=== PATIENT | female | born 1955 | race Caucasian/White ===

== ENCOUNTER 2024-07-21 15:45 | Inpatient (IN) | payer SELFPAY ==
[2024-07-21] VITALS (32 sets, daily range): BP systolic 89–152; BP diastolic 62–126; BMI 27.3
[2024-07-21 11:07] LABS: Hematocrit 41.1 % (37.0-47.0); Hemoglobin 13.8 g/dL (12.0-16.0); Mean Corp Hgb Conc. 33.6 g/dL (33.0-37.0); Mean Corpuscular Hgb 29.4 pg (27.0-31.0); Mean Corpuscular Volume 87.6 fL (81.0-99.0); Mean Platelet Volume 9.6 fL (7.4-10.4); Platelet Count 192 10^3/uL (130-400); Red Blood Cell Count 4.69 10^6/uL (4.20-5.40); Red Cell Dist. Width 14.2 % (11.5-14.5); White Blood Cell Count 5.8 10^3/uL (4.8-10.8)
[2024-07-21 11:22] LABS: ALT (SGPT) 48 U/L (0-35); AST (SGOT) 41 U/L (14-36); Albumin 3.7 g/dl (3.5-5.0); Alkaline Phosphatase 86 U/L (38-126); Blood Urea Nitrogen 26 mg/dl (7-17); Calcium 9.2 mg/dl (8.4-10.2); Carbon Dioxide 27 mmol/L (22-30); Chloride 99 mmol/L (98-107); Glucose 102 mg/dl (70-99); Sodium 137 mmol/L (135-145); Total Bilirubin 1.6 mg/dl (0.2-1.3); Total Protein 6.4 g/dl (6.3-8.2); eGFR > 60.00
[2024-07-21] MEDS: VANCOCIN 200 IV (12:09)
--- NOTE | 2024-07-21 15:18 | ITS.CL.ICD ---
[employer] - ICD
Implantable Cardioverter Defibrillator
Procedure Report:
Date of Procedure: July 21, 2024
Patient : 1955
Procedures: BiV ICD implantation
Indication: 1) Class III CHF, LVEF 15%, 2) left bundle Branch Block, QRS 155 ms
�
Implants:
Pulse Generator: spigit; Model# [id number]; Serial#�[id number]
Atrial Lead: Medtronic: Model# 4574; Serial# [id number]
Right Ventricular Lead: Medtronic; Model# 6935; Serial# [id number]
Left Ventricular Lead: Medtronic; Model# 4798; Serial# [id number]
�
�
Technique: The patient was prepped and draped in the usual fashion. Local anesthetic was applied to the left prepectoral subcutaneous tissue. A 4 inch incision was made. The left axillary vein was accessed��without difficulty. A subcutaneous pocket
was CREATED. Hemostasis was excellent. The right ventricular lead was placed at the right ventricular apex. The atrial lead was placed in the right atrial appendage. The coronary sinus was accessed with the aid of the Attain system. Coronary sinus
ostium was extremely tortuous with a corkscrew os requiring extensive manipulation to bring the outer catheter into the coronary sinus ostium and the left ventricular lead was placed in the high lateral branch with an active-fixation lead with
excellent parameters. 10 volt pacing did not capture the diaphragm. The leads were secured to the pectoralis muscle and fascia. The leads were appropriately attached to the device. The pocket was irrigated with antibiotic solution. The device and
leads were placed in the pocket and the device was secured to pectoralis muscle and facia. The incision was closed with absorbable sutures. The estimated blood loss was minimal. There were no complications. Device based testing was performed as
described below. IV contrast total: 30 cc.
18.3 minutes of pulse fluoroscopy and 76.3 mGy
System Analysis:
RA lead: P: 4.2 mV; Threshold: 1.0 V @ 0.5 ms; Impedance: 532 ohms.
RV lead: R: 5.9 mV; Threshold: 0.5 V @ 0.5 ms; Impedance: 494 ohms.
LV lead: R: 20 mV; Threshold: 1.0 V @ 0.5 ms; Impedance: 684 ohms.
�
Final Programming: Tachy: VT/VF:188; Isaac: DDDR 60-120.
�
Conclusion: Uncomplicated Biventricular ICD implant
�
Recommendation: Routine post BiV ICD care.
�
cc: Dr. Erlin Klein
�
--- NOTE | 2024-07-21 16:02 | PTCARENOTE ---
Received patient post BiVICD placement left upper chest. Aquacel dressing is dry and intact left chest, immobilizer in place. Patient sleepy but easily arousable, oriented to room and plan of care. Monitoring VS, call stover at the bedside.
--- NOTE | 2024-07-21 16:40 | CM ---
CM following for DC planning needs.
Met w/ patient, spouse at bedside to complete initial assessment.
Pt. resides in a private, 2 story home w/ spouse and mult. generations of their family (her father, her children).
Pt. is indep. at baseline w/ ADLs, mobility without the use of any assisted device.
Pt. does NOT have Rx plan; pays privately for medications and uses [facility] in [place].
DC plan is anticipated for home, no needs.
[2024-07-21] MEDS: LASIX 40 MG PO (18:35)
[2024-07-21] MEDS: FLUSH (NSS) 1 FLUSH IV (18:36)
[2024-07-21] MEDS: CORDARONE 103 MG IV (18:57)
--- NOTE | 2024-07-21 18:59 | W.PN.UPDATE ---
Addendum entered and electronically signed by Dagoberto Samuels MD 07/21/24 19:33:
patient converted to sinus after amio bolus. LV only pacing and office ECG demonstrate same LBRI morphology as in wide complex tachycardia further supporting diagnosis of SVT. Will start PO toprol at bid and amiodarone 200mg bid and overlap PO/IV
amiodarone overnight. will plan short/immediate term Po arrhythmia suppression given how rapid her heart rates are. Given her non ischemic CM could there be a tachycardia component to it as she was relatively asymptomatic with the arrhythmia? PO
toprol ordered 12.5mg bid and amiodarone 200mg bid. I suspect we will need to consider these meds at discharge and if she has further arrhythmia will likely plan to load drug over the weekend.
will follow closely.
discussed w nursing by phone
Original Note:
Update Note
Progress Note Update
called by nursing- I am [facility] surgeon but out of hospital.
patient hemodynamically stable/alert in a wide complex tachycardia
i reviewed the ECG in real time via tiger text.
LBB tachycardia with right inferior axis at 174-186bpm. (VF zone is 188). In EP lab she was having frequent atrial couplets and triplets.
As she is hemodynamically stable per nursing and per BP taken in arrhythmia will start stat amiodarone bolus then 1mg/min drip and PO toprol if she can tolerate. if she does not convert will plan to assess at bedside and interrogate device, The ECG
suggests a 1:1 AV relationship (probable short RP) and I favor SVT with aberrancy but cannot exclude VT. There is no clear evidence of any VA dissociation on the current ECG.
Discussed with nursing and will communicate further regarding course.
[2024-07-21] MEDS: CORDARONE 518 MG IV (19:08)
--- NOTE | 2024-07-21 20:07 | PTCARENOTE ---
While patient was eating dinner telemetry alarming VT with rates in the 170'180's. Patient asymptomatic, stat EKG done, notified Dr. Samuels, tt EKG sent to him and patient given amio bolus as ordered. Rate did respond to bolus, PLANNING AIDE in the 80's now.
Infusing amiodarone at 1mg/min, new IV site placed by the IV team.
[2024-07-21] MEDS: TOPROL XL 12.5 MG PO (20:15)
[2024-07-21] MEDS: PACERONE 200 MG PO (21:08)
[2024-07-22] VITALS: BP 101/69
--- NOTE | 2024-07-22 00:19 | PTCARENOTE ---
Pt received start of shift, HR currently V-paced w/ occasional PVCs. No further arrhythmia noted since amio bolus earlier in shift. Amiodarone infusing 1mg/min. amio PO and tropol PO administered as ordered - see DEC. L chest site dressing CDI. L
arm immobilizer on. Educated pt and significant other on purpose of amiodarone and toprol. Reviewed activity restrictions w/ pt. Pt updated on plan of care, pt states understanding. Call stover within reach.
[2024-07-22 04:19] VITALS: BP 86/69
[2024-07-22 04:21] VITALS: BP 91/68; BMI 27.7
[2024-07-22 04:51] VITALS: BMI 27.7
[2024-07-22 05:30] LABS: Hemoglobin 14.8 g/dL (12.0-16.0); Mean Corp Hgb Conc. 33.6 g/dL (33.0-37.0); Mean Corpuscular Hgb 30.5 pg (27.0-31.0); Mean Corpuscular Volume 90.5 fL (81.0-99.0); Mean Platelet Volume 10.2 fL (7.4-10.4); Platelet Count 196 10^3/uL (130-400); Red Blood Cell Count 4.86 10^6/uL (4.20-5.40); Red Cell Dist. Width 14.2 % (11.5-14.5); White Blood Cell Count 9.2 10^3/uL (4.8-10.8)
[2024-07-22 06:01] LABS: Blood Urea Nitrogen 28 mg/dl (7-17); Calcium 9.2 mg/dl (8.4-10.2); Carbon Dioxide 21 mmol/L (22-30); Chloride 99 mmol/L (98-107); Estimated Creatinine Clearance 50 ml/min; Glucose 208 mg/dl (70-99); Magnesium 1.9 mg/dl (1.6-2.3); Sodium 132 mmol/L (135-145); eGFR > 60.00
[2024-07-22 06:42] VITALS: BP 97/72
[2024-07-22] MEDS: TOPROL XL 12.5 MG PO (07:35)
[2024-07-22] MEDS: PACERONE 200 MG PO (07:35)
--- NOTE | 2024-07-22 07:49 | W.PN.CARDCBS ---
Addendum entered and electronically signed by Alicia Royal PA-C 07/22/24 11:40:
d/c summary addendum #[id number]
Addendum entered and electronically signed by Dagoberto Samuels MD 07/22/24 08:12:
Patient seen and examined
Agree with PA-C note and assessment
Agree with PA-C plan
Events of overnight noted. She had wide-complex tachycardia post implant in a sustained fashion although in procedure lab we noted atrial couplets and triplets leading to short runs of wide-complex tachycardia with a one-to-one AV relationship
suggesting AV node reentry tachycardia. Discussion with her today in retrospect she was having 1 to 2-hour episodes of this 3-4 times a week for approximately 1 to 2 years. I wonder whether her cardiomyopathy has a tachycardia component. She
typically took her 'oils'which helped ameliorate the tachycardia. After IV amiodarone as well as initiation of p.o. metoprolol and amiodarone no further tachyarrhythmias were noted. She has a sinus rate in the 80s with appropriate atrial sensing
as well as appropriate ventricular sensing and pacing. Her chest x-ray is noted and as she is afebrile without cough or a white count I am suspicious that she has bilateral pleural effusions that are small. Certainly clinically if she were to note
fevers or productive sputum the alternative pneumonia could be considered as an outpatient.
Examination
As per PA-C note
Her site is clean dry and intact
Chest x-ray demonstrates stable lead positions without pneumothorax
Alert and orient x 3
Nonfocal neurologically
Cor regular
Remainder as per PA-C note
Cardiology: Dr. Klein
EP: Dr. Samuels
Impression:
s/p Medtronic MACHINE SHORTHAND TEACHER-D 07/21/24
NICM EF 15-20% by echo 02/28/24
cLBBB
Nonobstructive CAD by cath 10/16/22
HTN
Severe with mild to mod AI
Hyperlipidemia
Echo 02/28/2024: EF 15 to 20% with severe global hypokinesis to near akinesis in the inferior posterior wall that was moderately to severely hypokinetic, no LV thrombus, grade 3 diastolic dysfunction, mild MR, severe without reported gradients and
mild to moderate aortic insufficiency
Plan:
-Patient came to for an elective MACHINE SHORTHAND TEACHER-D on 07/21/24. Patient with h/o NICM and previous testing as noted above.
-Patient is s/p Medtronic MACHINE SHORTHAND TEACHER-D and activity and limb restrictions reviewed.
-CM regimen includes outpatient dose of ramipril 5 mg daily
-Patient started on Toprol XL 12.5 mg daily on 07/22/24
-Outpatient dose of Lasix 60 mg PO AM and 40 mg PO PM has been continued
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 Amiodarone gtt started along with amiodarone 200 mg BID. Will stop amiodarone gtt now. Cont amiodarone 200 mg BID for 1 month and then reduce to 200 mg daily thereafter.
-Will follow on tele 07/22/24 and if arrhythmia improved and patient remains asymptomatic then will d/c to home on Toprol XL 12.5 mg daily and the amiodarone as above.
Original Note:
Today's Communication / Plan
-
Cont amiodarone PO load
Possible d/c to home later today
Impression / Plan
-
PCP: Dr. Fabiana Pond
Cardiology: Dr. Klein
EP: Dr. Samuels
Impression:
s/p Medtronic MACHINE SHORTHAND TEACHER-D 07/21/24
NICM EF 15-20% by echo 02/28/24
cLBBB
Nonobstructive CAD by cath 10/16/22
HTN
Severe with mild to mod AI
Hyperlipidemia
Echo 02/28/2024: EF 15 to 20% with severe global hypokinesis to near akinesis in the inferior posterior wall that was moderately to severely hypokinetic, no LV thrombus, grade 3 diastolic dysfunction, mild MR, severe without reported gradients and
mild to moderate aortic insufficiency
Plan:
-Patient came to for an elective MACHINE SHORTHAND TEACHER-D on 07/21/24. Patient with h/o NICM and previous testing as noted above.
-Patient is s/p Medtronic MACHINE SHORTHAND TEACHER-D and activity and limb restrictions reviewed.
-CM regimen includes outpatient dose of ramipril 5 mg daily
-Patient started on Toprol XL 12.5 mg daily on 07/22/24
-Outpatient dose of Lasix 60 mg PO AM and 40 mg PO PM has been continued
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 Amiodarone gtt started along with amiodarone 200 mg BID. Will stop amiodarone gtt now. Cont amiodarone 200 mg BID for 1 month and then reduce to 200 mg daily thereafter.
-Will follow on tele 07/22/24 and if arrhythmia improved and patient remains asymptomatic then will d/c to home.
Progress Note - House Superintendent
Subjective
Date of Service: July 22, 2024
No awareness of palpitations
Objective
Labs:
07/22/24 04:42
07/22/24 04:42
Labs
Hgb 14.8 g/dL (12.0-16.0) 07/22/24 04:42
Hct 44.0 % (37.0-47.0) 07/22/24 04:42
Plt Count 196 10^3/uL (130-400) 07/22/24 04:42
Sodium 132 mmol/L (135-145) L 07/22/24 04:42
Potassium 5.0 mmol/L (3.5-5.1) 07/22/24 04:42
BUN 28 mg/dl (7-17) H 07/22/24 04:42
Creatinine 0.9 mg/dL (0.6-1.0) 07/22/24 04:42
Glucose 208 mg/dl (70-99) H 07/22/24 04:42
Vital Signs and I&O:
Vital Signs
Temp Pulse Resp BP Pulse Ox
98.8 F 76 16 97/72 95
07/22/24 06:46 07/22/24 07:35 07/22/24 06:46 07/22/24 07:35 07/22/24 06:46
Vital Signs
Temp Pulse Resp BP Pulse Ox
98.8 F 76 16 97/72 95
07/22/24 06:46 07/22/24 07:35 07/22/24 06:46 07/22/24 07:35 07/22/24 06:46
Intake & Output
07/20/24 07/21/24 07/22/24 07/23/24
06:59 06:59 06:59 06:59
Intake Total 480 / 480
Balance 480 / 480
Physical Exam
Physical Exam
GEN: AAOx3
HEENT: MMM
LUNGS: No audible wheeze
CV: SR
ABD: ND
EXT: No edema
NEURO: Gross non-focal
SKIN: No rash
[2024-07-22 08:12] VITALS: BP 112/95
[2024-07-22] MEDS: LASIX 60 MG PO (08:15)
--- NOTE | 2024-07-22 11:40 | W.DS.TRANS ---
DC Summary - Knowledge Management Consultant
-
Discharge Instructions:
Sleep Apnea Risk Low
Discharge Diagnosis/Procedures Heart failure, post BiV ICD
Diet Low Cholesterol,2 Gram Sodium
Activity Other activity
Additional Activity See attached sheet
Driving Restrictions No driving for 1 week
Bathing Restrictions OK to Shower
Specialty Instructions Weigh Daily
Instructions:
Stand-Alone Forms: DC Inst - Implanted Device
Changes to Home Medications: Yes
Discharge Medications:
DC Medications w/original date entered in [employer]
furosemide 40 mg tablet 40 mg PO QPM 07/21/24
furosemide 40 mg tablet 60 mg PO DAILY 07/21/24
metoprolol succinate 25 mg tablet,extended release 24 hr 12.5 mg (1/2 x 25 mg) PO DAILY #9 tabs 07/21/24
ramipril 5 mg capsule 5 mg PO QPM PRN SBP>100 07/21/24
amiodarone 200 mg tablet 200 mg PO BID Arrhythmia #60 tabs 07/22/24
amiodarone 200 mg tablet 200 mg PO DAILY Arrhythmia #30 tabs 07/22/24
Home Medication Changes
New to Toprol XL and amiodarone
Pending Results: No
[2024-07-22 11:42] VITALS: BP 93/66
--- NOTE | 2024-07-22 13:58 | PTCARENOTE ---
Received patient at shift change. L chest wall dressing CDI with no evidence of hematoma. L arm immobilizer in place. V paced on the monitor, HR in the 70s. IV amio d/daniel. Discharge instructions read to pt, pt verbalizes understanding. IV and tele
removed. Pt left via wheelchair and staff escort with discharge instructions, belongings from room, and educational materials.
== END 2024-07-22 14:02 | disposition home or self-care (01) | DRG 277 ==
LOC: IVU 15:45
PROVIDERS: Nurse Practitioner Adult Health; ADMITTING PHYSICIAN Internal Medicine Cardiovascular Disease
PROC: 02H43KZ Insertion of Defibrillator Lead into Coronary Vein, Percutaneous Approach (ICD-10-PCS; 2024-07-21)
PROC: 0JH609Z Insertion of Cardiac Resynchronization Defibrillator Pulse Generator into Chest Subcutaneous Tissue and Fascia, Open Approach (ICD-10-PCS; 2024-07-21)
PROC: 02HK3KZ Insertion of Defibrillator Lead into Right Ventricle, Percutaneous Approach (ICD-10-PCS; 2024-07-21)
PROC: 02H63KZ Insertion of Defibrillator Lead into Right Atrium, Percutaneous Approach (ICD-10-PCS; 2024-07-21)
DX: I11.0 Hypertensive heart disease with heart failure (principal); I47.19 Other supraventricular tachycardia; I50.22 Chronic systolic (congestive) heart failure; I08.0 Rheumatic disorders of both mitral and aortic valves; I42.8 Other cardiomyopathies; I95.9 Hypotension, unspecified; I44.7 Left bundle-branch block, unspecified; I25.10 Atherosclerotic heart disease of native coronary artery without angina pectoris; E78.5 Hyperlipidemia, unspecified; R00.1 Bradycardia, unspecified; R73.9 Hyperglycemia, unspecified; Z79.899 Other long term (current) drug therapy; Z88.0 Allergy status to penicillin; Z88.2 Allergy status to sulfonamides; Z88.6 Allergy status to analgesic agent
CPT/HCPCS: 33225; 33249; 71045; 80048; 80053; 83735; 85027; 93005; C1730; C1769; C1777; C1882; C1887; C1892; C1898; C1900; Q9967